=== PATIENT | female | born 1980 | race Caucasian/White ===

== ENCOUNTER → 2018-03-14 17:21 | Outpatient (CLI) | payer OTHER, SELFPAY ==
[2018-03-14 17:42] LABS: Add Manual Diff / Slide Review NO; Basophils Percent Auto 0.4 % (0-2); Eosinophils Percent Auto 1.8 % (2-4); Hematocrit 28.3 % (36-46); Hemoglobin 9.5 g/dL (12.0-16.0); Lymphocytes Percent Auto 31.9 % (25-40); Mean Corpuscular HGB Conc 33.4 % (30-36); Mean Corpuscular Hemoglobin 26.5 PG (26-34); Mean Corpuscular Volume 79.2 fL (80-100); Neutrophils Absolute Auto 4600 /uL (3000-5900); Neutrophils Percent Auto 58.9 % (50-75); Platelet Count 321 X10^3/uL (150-400); Red Blood Cell Count 3.58 X10^6/uL (4.0-5.2); Red Cell Distribution Width 19.2 % (11.6-14.8); White Blood Cell Count 7.7 X10^3/uL (4.5-11.0)
== END ==
PROVIDERS: Family Provider Family Medicine; PCP Family Medicine; Visit Provider Specialist
DX: N92.1 Excessive and frequent menstruation with irregular cycle (principal)
CPT/HCPCS: 36415; 85025

== ENCOUNTER 2018-04-04 09:48 | Day surgery (SDC) | payer OTHER, SELFPAY ==
[2018-03-20 09:40] VITALS: BMI 26.4
[2018-04-04] VITALS (8 sets, daily range): BP systolic 99–110; BP diastolic 61–78; PULSE 55–72; RESP 9–16; TEMP 36.1–36.9; O2SAT 99–100; BMI 26.4
--- NOTE | 2018-04-04 | PATH_ITS ---
[facility] Accession Number: [id number] . 01 Material submitted: . ENDOMETRIAL CURRETTINGS . 02 Diagnosis: Endometrial Curettings: Portions of proliferative endometrium; negative for glandular hyperplasia, cytologic atypia, and malignancy. Portions of myometrium with no diagnostic abnormality. Some portions of endometrium demonstrate prominent vessels, suggestive of polyp, if clinical and imaging findings are concordant I04/06/2018 . 02 Electronically signed: . Roopa Cam MD, Pathologist NPI- [id number] . 01 Gross description: . Received in one formalin-filled container labeled with the patient's name and labeled endometrial curettings, is approximately an 8 cc aggregate of tissue and mucoid material, which is filtered an entirely submitted in cassettes A1 and A2. ([id number]) /FRR . 02 Pathologist provided ICD-10: N84.0 . 02 CPT . 085236 Performed at: 01 [facility] [address], [place], [place] [id number] MD Jeison Benitez MD Phone: [phone] Performed at: 02 [facility] [address] [place], [place] [id number] MD Shaquille Gonzalez MD Phone: [phone]
--- NOTE | 2018-04-04 11:09 | PM.PREOP ---
Pre-operative Note Interval Note Pre-op Check: Yes History & Physical Reviewed by Physician and Yes Exam Performed Changes: No H&P completed within 30 days and has changed as indicated here:: see 03/14/2018 office note For preoperative H&P
--- NOTE | 2018-04-04 11:46 | SUR.OPER ---
Lithotomy on padded OR bed, head on pillow, arms secured on padded arm boards at <90 degrees abduction. Legs secured in padded yellow fins stirrups.
[2018-04-04] MEDS: LACTATED RINGERS 1,000 ML 100 ML IV (11:55)
--- NOTE | 2018-04-04 12:00 | PM.OP.1 ---
Operative Date/Time/Diagnoses Date of procedure: 04/04/18 Time of procedure: 12:00 Pre-op diagnosis: Menorrhagia Post-op diagnosis: same Procedure & Clinicians Procedure: Hysteroscopy D&C Same procedure as scheduled: Yes Indications: Menorrhagia Surgeon: Sharmin Hagen Click Yes if Unassisted: Yes Anesthesia Type: General Operative Notes Closure Type: not applicable Specimen(s): other (Endometrial curettings) Estimated Blood Loss (mL): 5 Blood products transfused: none Procedure in detail: The patient was brought to the operating room where she underwent general anesthesia. She was placed in low stirrups She was prepped and draped in usual sterile fashion with pulsatile stockings in place and functional, warming in place. Her bladder was drained with in and out catheter. A single-tooth tenaculum was placed on the anterior lip of the cervix and the uterus dilated to #8 Hegar dilator. The hysteroscope was placed into the uterus with a sorbitol solution running and under constant suction. The resecting loop set at 100 W of cutting was used to resect some areas of thickened endometrium. A endometrial curettage was performed. The endometrial curettage was sent to pathology. The patient went to recovery room in good condition counts of instruments and sponges were correct. The sorbitol solution I=O approximately 3000 mL. Complications: none Condition: stable Disposition: same day surgery Plan for aftercare: Home when awake and stable. Follow-up in 2 weeks.
--- NOTE | 2018-04-04 16:02 | SUR.PHASEII ---
1245 pt taking fluids , vss, radha pad moderate drainage noted , co of cramping no pain , spouse at side
== END 2018-04-04 13:35 | disposition home or self-care (01) ==
PROVIDERS: Family Provider Family Medicine; PCP Family Medicine; Visit Provider Specialist
PROC: 0UDB8ZZ Extraction of Endometrium, Via Natural or Artificial Opening Endoscopic (ICD-10-PCS; CPT 58558; principal; 2018-04-04 10:45)
DX: N92.1 Excessive and frequent menstruation with irregular cycle (principal)
CPT/HCPCS: 58558; J1100; J1885; J2250; J2405; J2704; J3010

== ENCOUNTER 2018-04-08 16:20 | Emergency (ER) | payer OTHER, SELFPAY ==
[2018-04-08 17:05] VITALS: BP 121/78; PULSE 73; RESP 14; TEMP 36.4; O2SAT 100; BMI 27.0
[2018-04-08 18:04] LABS: Hematocrit 31.7 % (36-46); Hemoglobin 10.5 g/dL (12.0-16.0); Mean Corpuscular HGB Conc 33.1 % (30-36); Mean Corpuscular Hemoglobin 26.1 PG (26-34); Mean Corpuscular Volume 78.8 fL (80-100); Platelet Count 352 X10^3/uL (150-400); Red Blood Cell Count 4.03 X10^6/uL (4.0-5.2); Red Cell Distribution Width 15.1 % (11.6-14.8); White Blood Cell Count 8.3 X10^3/uL (4.5-11.0)
[2018-04-08 18:05] LABS: Blood Urea Nitrogen 12 mg/dL (7-17); Calcium 9.9 mg/dL (8.4-10.2); Carbon Dioxide 29 mmol/L (22-32); Chloride 103 mmol/L (98-107); Estimated Glomerular Filt Rate > 60.0 mL/min (>60); Glucose 95 mg/dL (70-100); HEMOLYSIS < 15 (0-50); Potassium 3.8 mmol/L (3.4-5.1); Sodium 139 mmol/L (137-145)
[2018-04-08 18:41] LABS: Neutrophils Absolute Manual 5727 /uL (3000-5900); Total Cells Counted 100
[2018-04-08 18:42] LABS: Anisocytosis 1+; Microcytosis 1+
[2018-04-08 18:45] VITALS: BP 112/56; PULSE 72; RESP 15; O2SAT 100
--- NOTE | 2018-04-08 19:41 | ED.WEAKNESS ---
HPI - Weakness General Chief complaint: Weakness Stated complaint: RECENT SURGERY,DIZZY,LIGHTHEADED,FATIGUE,HEADACHE Time Seen by Provider: 04/08/18 19:03 History of Present Illness HPI Narrative: patient is a 37-year-old female who recently had hysteroscopy and D and C for menorrhagia. This was done on 04/04/2018. Since then she has felt persistently dizzy lightheaded and short of breath. She says when she sits up too fast she gets it is the worst. She has been drinking multiple bottles of water. The bleeding is about the same. She does have a history of anemia however blood work from today actually shows improvement. She has had 3 miscarriages. No family history of blood clots. Mc3 Related Data Home Medications Medication Instructions Recorded Confirmed multivitamin with iron tablet 1 tab PO DAILY 03/14/18 04/08/18 ibuprofen 200 mg PO 4-6XD PRN 04/04/18 04/08/18 Allergies Allergy/AdvReac Type Severity Reaction Status Date / Time No Known Allergies Allergy Verified 04/08/18 17:07 Review of Systems Review of Systems All systems reviewed & are unremarkable except as noted in HPI and below Constitutional Denies chills, Reports fatigue, Denies fever(s) and Reports lethargy Eyes Denies change in vision, Denies eye discharge, Denies irritation and Denies loss of vision Cardiovascular Reports as per HPI, Denies chest pain, Denies syncope and Reports lightheadedness Respiratory Reports as per HPI Gastrointestinal Gastrointestinal: Denies abdominal pain, Denies change in bowel habits, Denies diarrhea, Denies nausea and Denies vomiting Genitourinary Reports as per HPI Musculoskeletal Denies back pain, Denies muscle weakness, Denies numbness and Denies tingling Integumentary/Breasts Denies pruritus, Denies erythema, Denies rash and Denies wounds Neurologic Denies syncope, Denies loss of vision, Denies numbness and Denies tingling Endocrine Reports fatigue [facility] Medical History Menorrhagia with regular cycle (Acute) Stress fracture of left foot (Acute) Social History household members: spouse Smoking Status: Never smoker alcohol intake: never Exam Initial Vital Signs Initial Vital Signs: Vital Signs Temperature 97.6 F 04/08/18 17:05 Pulse Rate 73 04/08/18 17:05 Respiratory Rate 14 04/08/18 17:05 Blood Pressure 121/78 H 04/08/18 17:05 Pulse Oximetry 100 04/08/18 17:05 Const General: cooperative and well developed Nutritional Appearance: well nourished Orientation: alert, awake, oriented x3 and not confused Eyes General: appearance normal, both eyes and all related structures Neck Neck: normal visual inspection, full ROM and no meningeal signs Chest Chest: normal inspection of the chest Resp Effort & Inspection: normal respiratory effort, able to speak in complete sentences, no respiratory distress and no use of accessory muscles Auscultation: clear to auscultation bilaterally, no rales, no rhonchi and no wheezes Cardio Rate: regular rate Rhythm: regular rhythm Heart Sounds: no click, no gallops, no murmurs and no rubs Pulses: normal peripheral pulses GI Inspection: non-distended Palpation: soft, no hepatosplenomegaly, No guarding, No pulsatile mass and No tender Auscultation: normal bowel sounds Skin General: no rashes or lesions noted, No jaundice and No petechiae Neuro General: alert, oriented x3, gait normal and no focal motor deficits Speech: speech normal Course Orders Ordered: ED Orders 04/08/18 20:01 CT angio chest PE protocol Stat Discontinued Medications Sodium Chloride (Normal Saline 0.9%) 1,000 mls @ 1,000 mls/hr IV BOLUS ONE Stop: 04/08/18 21:00 Last Infusion: 04/08/18 21:52 Dose: 0 mls/hr Admin: 04/08/18 21:13 Dose: 1,000 mls/hr Reevaluation(s) Reevaluation #1: abdomen is reexamined and remains soft nontender nondistended Time: 21:39 Vital Signs - 8 hr 04/08/18 21:40 Pulse Rate 77 Respiratory Rate 13 Blood Pressure [Left Arm] 106/68 Pulse Oximetry 98 MDM - Weakness Lab Data Attestation: I reviewed the patient's lab results. Result diagrams: 04/08/18 17:13 04/08/18 17:13 Lab Results 04/08/18 04/08/18 Range/Units 17:13 17:13 WBC 8.3 (4.5-11.0) X10^3/uL RBC 4.03 (4.0-5.2) X10^6/uL Hgb 10.5 L (12.0-16.0) g/dL Hct 31.7 L (36-46) % MCV 78.8 L (80-100) fL MCH 26.1 (26-34) PG MCHC 33.1 (30-36) % RDW 15.1 H (11.6-14.8) % Plt Count 352 (150-400) X10^3/uL Total Counted 100 Seg Neutrophils % 69.0 (38-70) % Band Neutrophils % 0.0 L (3-7) % Lymphocytes % (Manual) 28.0 (25-45) % Atypical Lymphs % 0.0 ( - 0) % Monocytes % (Manual) 2.0 (2-11) % Eosinophils % (Manual) 1.0 L (2-4) % Neutrophils # (Manual) 5727 (6822-8268) /uL RBC Morphology Not Reportable Anisocytosis 1+ H Microcytosis 1+ H Sodium 139 (137-145) mmol/L Potassium 3.8 (3.4-5.1) mmol/L Chloride 103 (98-107) mmol/L Carbon Dioxide 29 (22-32) mmol/L BUN 12 (7-17) mg/dL Creatinine 0.80 (0.52-1.04) mg/dL Estimated GFR > 60.0 (>60) mL/min BUN/Creatinine Ratio 15.0 (6-22) Glucose 95 (70-100) mg/dL Calcium 9.9 (8.4-10.2) mg/dL poc hgc neg Imaging Data CT PE: Radiologist's impression: PROCEDURE: CT ANGIO CHEST PE PROTOCOL INDICATIONS: persistant sob and light headed TECHNIQUE: After the administration of intravenous contrast, 2 mm thick sections acquired from the pulmonary apices to the posterior costophrenic angles. 3-dimensional maximum intensity projection (MIP) coronal and sagittal reformats were then acquired through the thorax. For radiation dose reduction, the following was used: automated exposure control, adjustment of mA and/or kV according to patient size. COMPARISON: None. FINDINGS: Image quality: Excellent. Pulmonary arteries: Pulmonary arteries are normal in size, and demonstrate no intraluminal filling defects to suggest central pulmonary embolism. Lungs and pleura: 2 mm pleural-based left lower lobe nodule is present. No pleural effusions or pneumothorax. Central and peripheral airways are patent. Mediastinum: Heart size is normal, without pericardial effusion. No mediastinal or hilar adenopathy. Thoracic aorta is normal in caliber and enhancement. Esophagus demonstrates mild diffuse thickening. Bones and chest wall: No suspicious bony lesions. Ribs and thoracic spine appear intact throughout. Thyroid gland is unremarkable. No axillary or supraclavicular adenopathy. Abdomen: Visualized upper abdominal solid organs appear normal in the early arterial phase of enhancement. IMPRESSION: 1. No pulmonary embolism. 2. 2 mm pleural based right lower lobe nodule. According to current Tashi criteria, no additional followup is recommended. 3. Nonspecific esophageal thickening. This could be related to esophagitis. Recommend correlation to patient symptoms and followup as indicated. Dictated by: Dasha Dyer M.D. on 04/08/2018 at 21:04 MDM Narrative Medical decision making narrative: Patient appears nontoxic. Her hemoglobin has improved actually from previously. Her abdomen remained soft and nontender she never even complained of abdominal pain. I do not suspect any complication from procedure. Complaining of mostly lightheadedness and shortness of breath and gets winded while talking. She does have a history of 3 miscarriages possible blood disorder. CT is negative for PE. She is feeling little better after IV fluids. She is able to sit up she is tolerating oral fluids without any difficulty. She is hemodynamically stable. I discussed all findings with the patient., Education has been performed regarding treatment plan, diagnosis, warning signs and symptoms and all concerns have been addressed. Verbally agree with and understood all of the above. Discharge Plan Departure Patient Disposition: Home, Self-Care Clinical Impression: Near syncope Discharge Date/Time: 04/08/18 21:53 Interventions: ED Discharge Assessment Last Done: 04/08/18 21:53 Instructions: DI for Syncope in Adults (Fainting) Activity Restrictions/Additional Instructions: *You have been diagnosed with lightheaded *What to do: continue frequent meals, increase fluid intake, blood work has improved and CT does not show all blood clots, no sign of infection *Continue to take medications as directed *Follow up with your primary care provider in 2-3 days *Return to ER if you should have increase shortness of breath, passing out, abdominal pain, fever or any new, worsening or concerning symptoms Prescriptions: No Action multivitamin with iron [Daily Multi-Vitamins/Iron] tablet 1 tab PO DAILY RF: 0 ibuprofen 200 mg tablet 200 mg PO 4-6XD PRN (Reason: Abdominal Pain) RF: 0 Referrals: Sharmin Hagen MD [Physician] - Adriano Zee MD [Primary Care Provider] - Stand Alone Forms: Work/School Restrictions
--- NOTE | 2018-04-08 20:01 | DI.CT.S_ITS ---
PROCEDURE: CT ANGIO CHEST PE PROTOCOL INDICATIONS: persistant sob and light headed TECHNIQUE: After the administration of intravenous contrast, 2 mm thick sections acquired from the pulmonary apices to the posterior costophrenic angles. 3-dimensional maximum intensity projection (MIP) coronal and sagittal reformats were then acquired through the thorax. For radiation dose reduction, the following was used: automated exposure control, adjustment of mA and/or kV according to patient size. COMPARISON: None. FINDINGS: Image quality: Excellent. Pulmonary arteries: Pulmonary arteries are normal in size, and demonstrate no intraluminal filling defects to suggest central pulmonary embolism. Lungs and pleura: 2 mm pleural-based left lower lobe nodule is present. No pleural effusions or pneumothorax. Central and peripheral airways are patent. Mediastinum: Heart size is normal, without pericardial effusion. No mediastinal or hilar adenopathy. Thoracic aorta is normal in caliber and enhancement. Esophagus demonstrates mild diffuse thickening. Bones and chest wall: No suspicious bony lesions. Ribs and thoracic spine appear intact throughout. Thyroid gland is unremarkable. No axillary or supraclavicular adenopathy. Abdomen: Visualized upper abdominal solid organs appear normal in the early arterial phase of enhancement. IMPRESSION: 1. No pulmonary embolism. 2. 2 mm pleural based right lower lobe nodule. According to current Tashi criteria, no additional followup is recommended. 3. Nonspecific esophageal thickening. This could be related to esophagitis. Recommend correlation to patient symptoms and followup as indicated. Dictated by: Dasha Dyer M.D. on 04/08/2018 at 21:04 Approved by: Dasha Dyer M.D. on 04/08/2018 at 21:06
[2018-04-08 20:21] VITALS: BP 101/58; PULSE 67; RESP 14; O2SAT 99
[2018-04-08] MEDS: SODIUM CHLORIDE 0.9% 1,000 ML 1000 ML IV (21:13)
[2018-04-08 21:40] VITALS: BP 106/68; PULSE 77; RESP 13; O2SAT 98
== END 2018-04-08 21:53 | disposition home or self-care (01) ==
PROVIDERS: Nurse Practitioner Family; Emergency Provider Emergency Medicine; Family Provider Family Medicine; PCP Family Medicine
DX: R55 Syncope and collapse (principal)
CPT/HCPCS: 36415; 71275; 80048; 81003; 81025; 85025; 96360; 99283; 99284; Q9967